=== PATIENT | female | born 1950 | race Caucasian/White ===

== ENCOUNTER → 2017-07-16 | Outpatient (CLI) | payer MEDICARE, OTHER | LOC: RAD 14:27 | DX: M20.12 Hallux valgus (acquired), left foot (principal); M25.775 Osteophyte, left foot ==

== ENCOUNTER 2021-05-15 16:50 | Observation (INO) | payer MEDICARE, OTHER ==
[~2021-05-15] VITALS: Ht 144.8 cm; Wt 47.1 kg
[2021-05-15] MEDS ORDERED: SIMVASTATIN20 M1 PO (17:45)
[2021-05-15] MEDS ORDERED: SALSALATE PO (17:45)
[2021-05-15] MEDS ORDERED: AMITRIPTYLINE H25 M2 PO (17:46)
[2021-05-15] MEDS ORDERED: PREDNISONE1 MG PO (17:47)
[2021-05-15] MEDS ORDERED: NORVASC 10MG10 MG PO (17:47)
[2021-05-15] MEDS ORDERED: NORCO 325 MG-7.1 TA1 PO (17:48)
[2021-05-15] MEDS ORDERED: ST. JOSEPH ASPI81 MG PO (17:50)
[2021-05-15] MEDS ORDERED: NEXIUM 24HR20 M2 PO (17:50)
[2021-05-15 18:22] VITALS: BP 127/63
--- NOTE | 2021-05-15 18:47 | NUR ---
REPORT GIVEN TO LUCERO ALBARADO
[2021-05-15 18:50] LABS: BASO # 0.04 K/mm3 (0.02-0.10); EOS # 0.11 K/mm3 (0.04-0.40); EOS % 1.5 % (1.0-5.0); HEMATOCRIT 42.6 % (37.0-47.0); HEMOGLOBIN 13.5 g/dL (12.5-16.0); MEAN CELL VOLUME 79 fl (78-100); MEAN CORPUSCULAR HEMOGLOBIN 25 pg (27-31); MEAN CORPUSCULAR HGB CONC 32 g/dL (33-37); MEAN PLATELET VOLUME 9.5 fl (7.4-10.4); MONO # 0.87 K/mm3 (0.20-0.80); NEU # 5.14 K/mm3 (1.40-6.50); PLATELET COUNT 335 K/mm3 (130-400); RED BLOOD COUNT 5.39 M/mm3 (4.10-5.30); RED CELL DISTRIBUTION WIDTH 15.9 % (11.5-14.5); WHITE BLOOD COUNT 7.6 K/mm3 (4.8-10.8)
[2021-05-15 18:57] LABS: ALBUMIN 3.1 g/dL (3.4-4.8); POTASSIUM 3.3 mmol/L (3.5-5.1)
[2021-05-15 18:59] LABS: CALCIUM 9.1 mg/dL (8.3-10.5)
[2021-05-15 19:00] LABS: TOTAL PROTEIN 7.5 g/dL (6.2-8.1)
[2021-05-15 19:02] LABS: TOTAL BILIRUBIN 0.2 mg/dL (0.2-1.2)
--- NOTE | 2021-05-15 19:02 | NUR ---
Report received from Marni Kelley RN. Patient resting supine in bed. A/O x4. Rates pain 4/10 to hip. States normally around 6-7 with scheduled [place] taken. Denies SOB or cough. Last BM 05/12. Wants to wait until tomorrow to take any sort of laxative. INT patent to [facility]. Denies questions, wants or needs. Bed alarm on. Call light in reach.
--- NOTE | 2021-05-15 19:42 | NUR ---
WELDER SETTER RESISTANCE MACHINE in room to apply SCD's. Patient states "your wasting your time, I don't like them and I'm not wearing them". Educated on risk of DVT and patient states "I know, but I don't want them" Provider notified.
[2021-05-15 22:00] VITALS: BP 138/85
--- NOTE | 2021-05-15 23:00 | NUR ---
Calls to urinate. Bed moya used. Voids 250 Ml of urine. Clean catch UA to lab.
[2021-05-15 23:21] LABS: URINE APPEARANCE CLEAR; URINE COLOR YELLOW
[2021-05-15 23:22] LABS: PH-URINE 5.5 (5.0 - 8.0); URINE BILIRUBIN NEGATIVE (NEGATIVE); URINE BLOOD NEGATIVE (NEGATIVE); URINE GLUCOSE NEGATIVE (NEGATIVE); URINE KETONE NEGATIVE (NEGATIVE); URINE LEUKOCYTE ESTERASE NEGATIVE (NEGATIVE); URINE MUCUS PRESENT (NOT PRESENT); URINE NITRATE NEGATIVE (NEGATIVE); URINE PROTEIN(semi-quant) TRACE (NEGATIVE); URINE UROBILINOGEN NORMAL (NORMAL); URINE WBC 0-1 /hpf (0-3)
--- NOTE | 2021-05-16 00:34 | NUR ---
[place] given for pain 01/27 to R hip. Denies further wants or needs.
--- NOTE | 2021-05-16 03:48 | NUR ---
Calls to use bed moya. Pain with movement. Voids 300 ML of clear yellow urine. Repositioned for comfort.
[2021-05-16 05:49] VITALS: BP 128/79
--- NOTE | 2021-05-16 06:14 | NUR ---
Calls for [place]. Pain level 9/10 to back and R hip. [place] 5/325 MG taken at this time.
--- NOTE | 2021-05-16 07:00 | NUR ---
REPORT RECEIVED FROM PER BARKER. PATIENT CURRENTLY RESTING IN BED WITH EYES CLOSED. EASILY AROUSABLE. DENIES NEEDS OR COMPLAINTS AT THIS TIME. BED IN LOWEST LOCKED POSTION, CALL LIGHT WITHIN REACH.
--- NOTE | 2021-05-16 07:01 | NUR ---
[facility]
--- NOTE | 2021-05-16 09:00 | NUR ---
PATIENT UP TO CHAIR WITH TV ON. PATIENT STATES HE IS "DOING WELL." PATIENT DENIES ANY FURTHER NEEDS OR COMPLAINTS. CALL LIGHT WITHIN REACH
--- NOTE | 2021-05-16 10:00 | NUR ---
PATIENT TO BE DISCHARGED FOR APPIONTMENT WITH DR. GALVAN AT [facility] IN [place]. [facility] WILL TRANSPORT.
[2021-05-16 10:05] VITALS: BP 140/82
--- NOTE | 2021-05-16 13:00 | NUR ---
PATIENT RESTING IN BED. AT BEDSIDE. NURSE NOTIFIED PATIENT BOTTOM REDDENED, PATIENT REPOSTIONED TO SIDE. IS SEEKING INFORMATION ABOUT PLAN FOR POSSIBLE SURGERY ON SATURDAY AT [place]. PATIENT OFFERS NO NEEDS OR COMPLAINTS AT THIS TIME. BED IN LOWEST LOCKED POSTION, ALRMA ON, CALL LIGHT WITHIN REACH.
[2021-05-16 14:03] VITALS: BP 122/76
--- NOTE | 2021-05-16 15:00 | NUR ---
HOUSE PAINTING INSTRUCTOR CONTACTED DR. CONOR COREY [facility] PLAN OF CARE FOR PATIENT. DR. COREY STATES SURGERY IS NON URGENT AND WILL LIKELY BE SCHEDULED IN THE FUTURE. PATIENT PAIN IS OUT OF CONTEXT WITH PLACEMENT OF SCREW. DR. COREY WOULD LIKE TO SEE PATIENT IN CLINIC NEXT WEEK.
--- NOTE | 2021-05-16 18:00 | NUR ---
PATIENT PLEASENT AND COOPERATIVE WITH CARES. PATIENT STATED BEING MORE COMFORTABLE LYING ON BACK. THIS NURSE EXPLAINED THE IMPORTANCE OF TURNING TO RELIVE PRESSURE ON BOTTOM TO PREVENT FURTHER REDDENING OR SORES. PATIENT VERBILIZED UNDERSTANDING AND AGREED TO TRY. PATIENT CURRENTLY RESTING IN BED WITH TV ON. CALL LIGHT WITHIN REACH.
[2021-05-16 18:02] VITALS: BP 125/77
--- NOTE | 2021-05-16 19:00 | NUR ---
Report received from Merna ALBARADO.
--- NOTE | 2021-05-16 19:10 | NUR ---
REPORT GIVEN TO DEB ROBERTSON.
--- NOTE | 2021-05-16 20:00 | NUR ---
Hs meds reviewed and given. Patient resting in bed awake and alert. Pleasant. Bilateral heels reddened and floated on pillow. Uses bedpan with assist and repositioned up in bed. Snack of pudding given.
[2021-05-16 22:30] VITALS: BP 127/79
--- NOTE | 2021-05-17 03:00 | NUR ---
Patient rests with eyes closed. Respirations with ease.
[2021-05-17 05:20] VITALS: BP 133/84
--- NOTE | 2021-05-17 06:00 | NUR ---
Patient awakened for med and assisted onto bedpan. No void. Repositioned up in bed. Has been resting with eyes closed.
--- NOTE | 2021-05-17 07:20 | NUR ---
REPORT RECEIVED FROM MARCELO BOYD.
--- NOTE | 2021-05-17 09:03 | NUR ---
MITUL Prather in room to speak with patient at this time. Pt alert and oriented and having appropriate conversation. Pt states pain is significantly improved after the pain med she received this morning. Pt appears comfortable at this time but states that she has breakthrough pain between pain meds that gets pretty bad.
[2021-05-17 09:40] LABS: POTASSIUM 4.9 mmol/L (3.5-5.1)
--- NOTE | 2021-05-17 09:47 | NUR ---
Spoke with Tegan regarding Dr. Flahertys recomendations of going to the clinic for evaluation by Dr. Flaherty. She is asking why they have changed their mind regarding surgery on . This CM called and spoke directly to Dr. Flaherty on 05/16/21. She said that Tegan needs to come to the clinic next week to discuss surgery. This is not urgent and will likely schedule in the future. Dr. Flaherty stated that the pain she is reporting is out of context to the screw placement. Dr. Flaherty stated that this is an elective surgery.
[2021-05-17 09:48] VITALS: BP 151/96
[2021-05-17 10:10] LABS: CALCIUM 8.9 mg/dL (8.3-10.5)
[2021-05-17 10:17] LABS: BASO # 0.11 K/mm3 (0.02-0.10); EOS # 0.09 K/mm3 (0.04-0.40); EOS % 1.2 % (1.0-5.0); HEMATOCRIT 45.7 % (37.0-47.0); HEMOGLOBIN 13.4 g/dL (12.5-16.0); LYMPH# 1.53 K/mm3 (1.50-4.00); MEAN CELL VOLUME 91 fl (78-100); MEAN CORPUSCULAR HEMOGLOBIN 27 pg (27-31); MEAN CORPUSCULAR HGB CONC 29 g/dL (33-37); MEAN PLATELET VOLUME 11.2 fl (7.4-10.4); MONO # 0.52 K/mm3 (0.20-0.80); NEU # 4.95 K/mm3 (1.40-6.50); PLATELET COUNT 334 K/mm3 (130-400); RED CELL DISTRIBUTION WIDTH 17.5 % (11.5-14.5); WHITE BLOOD COUNT 7.2 K/mm3 (4.8-10.8)
[2021-05-17] MEDS ORDERED: NORCO 325 MG-7.1 TA1 PO ×2 (12:17→14:17)
[2021-05-17 14:00] VITALS: BP 109/76
--- NOTE | 2021-05-17 14:55 | NUR ---
AMBULATES TO BATHROOM WITH 1:1 ASSIST. GAIT SLOW AND STEADY.
--- NOTE | 2021-05-17 15:15 | NUR ---
DC INSTRUCTIONS REVIEWED WITH PATIENT. SHE REPORTS WENT TO [facility] AFTER HIS VISIT HERE AND SPOKE WITH STAFF REGARDING HOW UPSET HE WAS WITH 'S CARE PLAN REGARDING HER SURGERY. PATIENT REPORTS HER AND ORTHO STAFF DEVISED A PLAN FOR HER TO GO HOME TONIGHT AND THEN UTILIZE AN AMBULANCE IN THE MORNING TO RETURN TO THE [facility] ER. THERE DR COREY WOULD BE ABLE TO SEE HER AND DO A PROCEDURE (MOST LIKELY OUTPATIENT) TO FIX THE LOOSE SCREW IN RT HIP. PATIENT WAS UNSURE IF THIS WOULD BE DONE AT [facility] OR AT THE SURGICAL CENTER. ADVISE PATIENT THAT LAST KNOWN BY STAFF, THERE WAS NO BED AVAILABILITY AT [facility] OR EVEN IN [place] FOR THAT MATTER. PATIENT ALSO REPORTS THAT SHE WAS REASSURED BY WALKING TO THE BATHROOM EARLIER. STATES "I WAS IN SO MUCH PAIN BEFORE THAT I JUST STOPPED MOVING AROUND BECAUSE IT HURT. NOW I KNOW I CAN MOVE AROUND AND WILL DO IT MORE."
== END 2021-05-17 15:58 | disposition home health service (06) ==
LOC: MED/SURG 16:50
PROVIDERS: Physician Assistant; ADMIT Nurse Practitioner
DX: T84.030A Mechanical loosening of internal right hip prosthetic joint, initial encounter (principal); M25.551 Pain in right hip; M06.9 Rheumatoid arthritis, unspecified; Z90.49 Acquired absence of other specified parts of digestive tract; Z89.412 Acquired absence of left great toe; Z79.82 Long term (current) use of aspirin; Z79.899 Other long term (current) drug therapy
CPT/HCPCS: A9270; G0378; J7512